=== PATIENT | male | born 1945 | race Caucasian/White ===

== ENCOUNTER → 2016-03-23 | Outpatient (CLI) | payer MEDICARE | LOC: RAD 15:06 | PROVIDERS: ATTEND Chiropractor | DX: M54.17 Radiculopathy, lumbosacral region (principal); M99.03 Segmental and somatic dysfunction of lumbar region | CPT/HCPCS: 72148 ==

== ENCOUNTER 2016-05-03 14:04 | Inpatient (IN) | payer MEDICARE ==
--- NOTE | 2016-05-03 14:32 | ER Document Report ---
ED Medical Screen (RME) - General Stated Complaint: RIGHT LEG PAIN, SWELLING Notes: dr rosen sent him over for DVT in right leg with concern for ?PE, patient has a h/o colon cancer but is in remission denies CP, SOB, difficulty breathing +h/o cancer, drove to [place] 2 weeks ago -recent surgery, tobacco use I have greeted and performed a rapid initial assessment of this patient. A comprehensive ED assessment and evaluation of the patient, analysis of test results and completion of the medical decision making process will be conducted by additional ED providers. TRAVEL OUTSIDE OF THE [place] IN LAST 30 DAYS: No - Related Data Allergies/Adverse Reactions: No Known Allergies Allergy (Verified 05/03/16 14:29) Past Medical History - Past Medical History Cardiac Medical History: Denies: Hx Coronary Artery Disease, Hx Heart Attack, Hx Hypertension Pulmonary Medical History: Reports: Hx Bronchitis - hx of, Hx COPD - inhalers Denies: Hx Asthma, Hx Pneumonia Neurological Medical History: Denies: Hx Cerebrovascular Accident, Hx Seizures Musculoskeltal Medical History: Denies Hx Arthritis - Immunizations Hx Diphtheria, Pertussis, Tetanus Vaccination: No
[2016-05-03 14:56] LABS: ABSOLUTE BASOPHILS # (AUTO) 0.1 10^3/uL (0.0-0.2); ABSOLUTE EOSINOPHILS # (AUTO) 0.4 10^3/uL (0.0-0.6); ABSOLUTE LYMPHOCYTES (AUTO) 1.2 10^3/uL (0.5-4.7); ABSOLUTE MONOCYTES (AUTO) 0.9 10^3/uL (0.1-1.4); ABSOLUTE NEUT (AUTO) 5.5 10^3/uL (1.7-8.2); BASOPHILS % (AUTO) 0.7 % (0-2); EOSINOPHILS % (AUTO) 4.8 % (0-6); HEMATOCRIT 41.5 % (37.9-51.0); HEMOGLOBIN 13.7 g/dL (13.5-17.0); HGB HCT DIFFERENCE -0.4; LYMPHOCYTES % (AUTO) 14.7 % (13-45); MEAN CORPUSCULAR HEMOGLOBIN 29.8 pg (27.0-33.4); MEAN CORPUSCULAR VOLUME 90 fl (80-97); MONOCYTES % (AUTO) 11.3 % (3-13); RED CELL DISTRIBUTION WIDTH 13.5 % (11.5-14.0); SEGMENTED NEUTROPHILS % (AUTO) 68.5 % (42-78); WHITE BLOOD COUNT 8.1 10^3/uL (4.0-10.5)
[2016-05-03 15:02] LABS: PROTHROMBIN TIME 13.3 SEC (11.4-15.4)
[2016-05-03 15:21] LABS: ALANINE AMINOTRANSFERASE 38 U/L (21-72); ALBUMIN 4.3 g/dL (3.5-5.0); ALKALINE PHOSPHATASE 71 U/L (38-126); ANION GAP 9 (5-19); ASPARTATE AMINO TRANSFERASE 20 U/L (17-59); BILIRUBIN,TOTAL 0.4 mg/dL (0.2-1.3); BLOOD UREA NITROGEN 18 mg/dL (7-20); CALCIUM 9.5 mg/dL (8.4-10.2); CARBON DIOXIDE 26 mmol/L (22-30); CHLORIDE 102 mmol/L (98-107); GLUCOSE 124 mg/dL (75-110); POTASSIUM 4.6 mmol/L (3.6-5.0); SODIUM 136.7 mmol/L (137-145); TOTAL PROTEIN 7.3 g/dL (6.3-8.2)
[2016-05-03] MEDS ORDERED: HEPARIN SOD (PORCINE) 1,000 UNIT/ML 10 ML VIAL IV ONE (17:58)
[2016-05-03] MEDS ORDERED: ENOXAPARIN SODIUM INJ 100 MG/1 ML DISP.SYRIN SUBCUT ONE (18:18)
--- NOTE | 2016-05-03 18:24 | ER Document Report ---
ED Respiratory Problem - General Chief Complaint: Swelling Stated Complaint: RIGHT LEG PAIN, SWELLING Notes: The patient is a 71-year-old male, past medical history colon cancer in the past , presents with right leg swelling and increased shortness of breath over the past few days. He saw his oncologist at [facility] earlier today, had a ultrasound of his right leg which showed large DVT and was sent to the emergency room for a CTA to assess for PE. He denies chest pain, nausea, vomiting, numbness, tingling, fevers, back pain or abdominal pain. TRAVEL OUTSIDE OF THE [place] IN LAST 30 DAYS: No - Related Data Allergies/Adverse Reactions: No Known Allergies Allergy (Verified 05/03/16 14:29) Past Medical History - General Information source: Patient - Social History Smoking Status: Never Smoker Chew tobacco use (# tins/day): No Frequency of alcohol use: None Drug Abuse: None Family History: Reviewed & Not Pertinent Patient has suicidal ideation: No Patient has homicidal ideation: No - Past Medical History Cardiac Medical History: Denies: Hx Coronary Artery Disease, Hx Heart Attack, Hx Hypertension Pulmonary Medical History: Reports: Hx Bronchitis - hx of, Hx COPD - inhalers Denies: Hx Asthma, Hx Pneumonia Neurological Medical History: Denies: Hx Cerebrovascular Accident, Hx Seizures Renal/ Medical History: Denies: Hx Peritoneal Dialysis Musculoskeltal Medical History: Denies Hx Arthritis Past Surgical History: Reports: Hx Abdominal Surgery - hernia repair, colon removed b/c CA, Hx Orthopedic Surgery - collar bone - Immunizations Hx Diphtheria, Pertussis, Tetanus Vaccination: No Hx Pneumococcal Vaccination: 12/25/12 Review of Systems - Review of Systems Notes: REVIEW OF SYSTEMS: CONSTITUTIONAL: -fevers, -chills EENT: -eye pain, -difficulty swallowing, -nasal congestion CARDIOVASCULAR: -chest pain, -syncope. RESPIRATORY: -cough, +SOB GASTROINTESTINAL: -abdominal pain, - nausea, -vomiting, -diarrhea GENITOURINARY: -dysuria, -hematuria MUSCULOSKELETAL: +right leg swelling and pain, -back pain, -neck pain SKIN: -rash or skin lesions. HEMATOLOGIC: -easy bruising or bleeding. LYMPHATIC: -swollen, enlarged glands. NEUROLOGICAL: -altered mental status or loss of consciousness, -headache, - neurologic symptoms PSYCHIATRIC: -anxiety, -depression. ALL OTHER SYSTEMS REVIEWED AND NEGATIVE. Physical Exam - Vital signs Vitals: Temp Pulse BP Pulse Ox 98.8 F 92 115/71 97 05/03/16 14:22 05/03/16 14:22 05/03/16 14:22 05/03/16 14:22 - Notes Notes: PHYSICAL EXAMINATION: GENERAL: Well-appearing, well-nourished and in no acute distress. HEAD: Atraumatic, normocephalic. EYES: Pupils equal round and reactive to light, extraocular movements intact, sclera anicteric, conjunctiva are normal. ENT: nares patent, oropharynx clear without exudates. Moist mucous membranes. NECK: Normal range of motion, supple without lymphadenopathy LUNGS: Breath sounds clear to auscultation bilaterally and equal. No wheezes rales or rhonchi. HEART: Regular rate and rhythm without murmurs ABDOMEN: Soft, nontender, normoactive bowel sounds. No guarding, no rebound. No masses appreciated. EXTREMITIES: Right leg with swelling and tenderness. Normal range of motion, no pitting or edema. No cyanosis. NEUROLOGICAL: Cranial nerves grossly intact. Normal speech, normal gait. Normal sensory, motor, and reflex exams. PSYCH: Normal mood, normal affect. SKIN: Warm, Dry, normal turgor, no rashes or lesions noted. Course - Re-evaluation Re-evalutation: 05/03/16 18:23 Patient has multiple small PE with large DVT on right lower extremity most likely from his history of colon cancer. Spoke to Dr. Acosta and he has accepted patient onto his service. He recommends Lovenox. Patient is hemodynamically stable at this time. - Vital Signs Vital signs: Temp Pulse Resp BP Pulse Ox 98.1 F 92 15 132/82 H 98 05/03/16 16:03 05/03/16 14:22 05/03/16 17:04 05/03/16 16:03 05/03/16 17:04 - Laboratory Result Diagrams: 05/03/16 14:35 05/03/16 14:35 Laboratory results interpreted by me: 05/03/16 14:35 Sodium 136.7 L Glucose 124 H - Diagnostic Test Radiology reviewed: Image reviewed, Reports reviewed Radiology results interpreted by me: CTA: Multiple small PEs Critical Care Note - Critical Care Note Total time excluding time spent on procedures (mins): 30 Discharge - Discharge Clinical Impression: DVT (deep venous thrombosis) Qualifiers: DVT location: lower extremity Affected thrombotic vein of extremity: unspecified vein of extremity Laterality: right Chronicity: unspecified Qualified Code(s): I82.401 - Acute embolism and thrombosis of unspecified deep veins of right lower extremity Pulmonary embolism Qualifiers: Pulmonary embolism type: other Chronicity: unspecified Acute cor pulmonale presence: without acute cor pulmonale Qualified Code(s): I26.99 - Other pulmonary embolism without acute cor pulmonale Condition: Stable Disposition: ADMITTED INPATIENT Admitting Provider: Hospitalist Unit Admitted: Medical Floor
[2016-05-03] MEDS ORDERED: ACETAMINOPHEN 325 MG TABLET PO PRN (18:48)
[2016-05-03] MEDS ORDERED: ONDANSETRON 4 MG TAB.RAPDIS PO PRN (18:48)
[2016-05-03] MEDS ORDERED: OXYCODONE HCL IR 5 MG TABLET PO PRN (18:54)
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
[2016-05-03] MEDS ORDERED: RIVAROXABAN 15 MG TABLET PO ONE (19:45)
[2016-05-04 05:00] LABS: HEMATOCRIT 39.2 % (37.9-51.0); HGB HCT DIFFERENCE -0.2; MEAN CORPUSCULAR HEMOGLOBIN 29.9 pg (27.0-33.4); MEAN CORPUSCULAR HGB CONC 33.1 g/dL (32.0-36.0); MEAN CORPUSCULAR VOLUME 90 fl (80-97); RED BLOOD COUNT 4.34 10^6/uL (4.35-5.55); RED CELL DISTRIBUTION WIDTH 13.7 % (11.5-14.0); WHITE BLOOD COUNT 7.3 10^3/uL (4.0-10.5)
[2016-05-04 05:14] LABS: ANION GAP 9 (5-19); BLOOD UREA NITROGEN 19 mg/dL (7-20); CARBON DIOXIDE 27 mmol/L (22-30); CHLORIDE 102 mmol/L (98-107); CREATININE RESULT 1.03 mg/dL (0.52-1.25); GLUCOSE 99 mg/dL (75-110); POTASSIUM 4.9 mmol/L (3.6-5.0); SODIUM 138.3 mmol/L (137-145)
[2016-05-04] MEDS ORDERED: RIVAROXABAN 15 MG TABLET PO SCH (08:00)
[2016-05-04 10:00] VITALS: BP 108/65
--- NOTE | 2016-05-04 10:00 | PDOC DISCHARGE SUMMARY ---
General - Admit/Disc Date/PCP Admission Date/Primary Care Provider: 05/03/16 18:48 Discharge Date: 05/04/16 - Discharge Diagnosis (1) Pulmonary embolism Is this a current diagnosis for this admission?: YesSummary: Treated with Xarelto (2) DVT (deep venous thrombosis) Is this a current diagnosis for this admission?: Yes (3) Gastroesophageal reflux disease Is this a current diagnosis for this admission?: Yes (4) Hypertension Is this a current diagnosis for this admission?: Yes (5) COPD (chronic obstructive pulmonary disease) Is this a current diagnosis for this admission?: Yes (6) Colon cancer Is this a current diagnosis for this admission?: Yes - Additional Information Resuscitation Status: Full Code Discharge Diet: Cardiac Discharge Activity: Activity As Tolerated, Keep Legs Elevated Home Medications: Bifidobacterium Infantis [Align 4 mg Capsule] 1 cap PO DAILY 11/23/13 Fexofenadine HCl [Tamika] 180 mg PO DAILY 11/23/13 Inhaler, Assist Devices [Aerochamber Mv] 1 each MC DAILY 11/23/13 Montelukast Sodium [Singulair 10 mg Tablet] 10 mg PO QHS 11/23/13 Omeprazole 20 mg PO DAILY 11/23/13 Oxycodone HCl/Acetaminophen [Percocet 10-325 mg Tablet] 1 each PO DAILY Pycnogn/Grpsdxt/Gkblfxt/Grtlfx [Herbal Antioxidant Formula Tab] 1 each PO DAILY 11/23/13 Tamsulosin HCl 0.4 mg PO DAILY 11/23/13 Rivaroxaban [Xarelto 15 mg Tablet] 15 mg PO BIDBS #42 tablet 05/04/16 History of Present Illness History of Present Illness: RUEL HILL is a 71 year old male who presents with a swollen right leg and is found have a pulmonary embolism. The patient reports that 3 weeks ago he began have back pain and was referred for an epidural injection for treatment of sciatica on the right. The patient had an epidural injection with improvement in his pain but continued to have pain in his right leg and also swelling. The patient went to his oncologist today and was sent for a Doppler was found to have a DVT. CT angiogram also showed him to have bilateral pulmonary emboli. Patient denies having significant shortness of breath and denies any chest pain. Denies any orthopnea or PND. He denies a cough or fevers or chills. Denies any change in his weight. He has a history of colon cancer in 2010 but has been cancer free since surgery and chemotherapy in 2010. Hospital Course Hospital Course: 71-year-old gentleman who has had problems with recent immobility developed DVT and pulmonary embolism. He was monitored overnight and started on Xarelto. He is not hypoxic and is able to ambulate without much discomfort or shortness of breath. Patient will go home with Xarelto 15 mg twice a day for 21 days and then 20 mg daily after that. Physical Exam Vital Signs: Temp Pulse Resp BP Pulse Ox 98.3 F 84 16 118/64 97 05/04/16 08:25 05/04/16 08:25 05/04/16 08:25 05/04/16 08:25 05/04/16 08:25 Intake & Output 05/03/16 05/04/16 05/05/16 06:59 06:59 06:59 Intake Total 600 Balance 600 Weight 82.5 kg General appearance: PRESENT: no acute distress Eye exam: PRESENT: conjunctiva pink. ABSENT: scleral icterus Mouth exam: PRESENT: moist, tongue midline Neck exam: ABSENT: carotid bruit, JVD, lymphadenopathy, thyromegaly Respiratory exam: PRESENT: clear to auscultation stephon. ABSENT: rales, rhonchi, wheezes Cardiovascular exam: PRESENT: RRR. ABSENT: diastolic murmur, rubs, systolic murmur GI/Abdominal exam: PRESENT: normal bowel sounds, soft. ABSENT: distended, guarding, mass, organolmegaly, rebound, tenderness Extremities exam: PRESENT: pedal edema - Right-sided leg edema.. ABSENT: calf tenderness, clubbing Neurological exam: PRESENT: alert, awake, oriented to person, oriented to place , oriented to time, oriented to situation Psychiatric exam: PRESENT: appropriate affect Skin exam: PRESENT: dry, intact, warm. ABSENT: cyanosis, rash Results Laboratory Results: 05/04/16 04:16 05/04/16 04:16 05/04/16 05/04/16 04:16 04:16 WBC 7.3 RBC 4.34 L Hgb 13.0 L Hct 39.2 MCV 90 MCH 29.9 MCHC 33.1 RDW 13.7 Plt Count 174 Sodium 138.3 Potassium 4.9 Chloride 102 Carbon Dioxide 27 Anion Gap 9 BUN 19 Creatinine 1.03 Est GFR ( Amer) > 60 Est GFR (Non-Af Amer) > 60 Glucose 99 Calcium 9.0 Impressions: Chest/Abdomen CTA 05/03/16 14:32 IMPRESSION: 1. Positive for mild pulmonary embolus as described. 2. Mild COPD. 3. Atherosclerosis. Qualifiers PATEINT BEING DISCHARGED WITH ANY OF THE FOLLOWING DIAGNOSIS?: No Plan Discharge Plan: Patient is discharged home in stable condition. Follow-up with primary care in 1 week. Time Spent: Less than 30 Minutes
== END 2016-05-04 10:20 | disposition home or self-care (01) | DRG 176 ==
LOC: ER 14:04 → EH 18:48 → 5 20:51
PROVIDERS: ADMIT Emergency Medicine; ATTEND Emergency Medicine
DX: I26.99 Other pulmonary embolism without acute cor pulmonale (principal); I82.401 Acute embolism and thrombosis of unspecified deep veins of right lower extremity; J44.9 Chronic obstructive pulmonary disease, unspecified; K21.9 Gastro-esophageal reflux disease without esophagitis; I10 Essential (primary) hypertension; Z85.038 Personal history of other malignant neoplasm of large intestine; Z92.21 Personal history of antineoplastic chemotherapy; M54.31 Sciatica, right side; Z79.02 Long term (current) use of antithrombotics/antiplatelets; Z90.49 Acquired absence of other specified parts of digestive tract
CPT/HCPCS: 36415; 71275; 80048; 80053; 85025; 85027; 85610; 93971; 99291; J1650

== ENCOUNTER → 2016-05-03 | Outpatient (CLI) | payer MEDICARE | LOC: SP 12:43 | PROVIDERS: ATTEND Internal Medicine Medical Oncology | DX: M79.661 Pain in right lower leg (principal) | CPT/HCPCS: 93971 ==

== ENCOUNTER → 2016-06-01 | Outpatient (CLI) | payer MEDICARE | LOC: RAD 05-20 17:41 | PROVIDERS: ATTEND Internal Medicine Medical Oncology | DX: C18.9 Malignant neoplasm of colon, unspecified (principal) | CPT/HCPCS: 78815; A9552 ==

== ENCOUNTER → 2016-06-21 | Outpatient (CLI) | payer MEDICARE | LOC: RAD 07:47 | PROVIDERS: ATTEND Internal Medicine Medical Oncology | DX: C20 Malignant neoplasm of rectum (principal); M48.56XA Collapsed vertebra, not elsewhere classified, lumbar region, initial encounter for fracture | CPT/HCPCS: 72158; A9577 ==

== ENCOUNTER 2016-07-17 10:54 | Day surgery (SDC) | payer MEDICARE ==
[2016-07-13 11:31] LABS: HEMATOCRIT 43.5 % (37.9-51.0); HEMOGLOBIN 14.6 g/dL (13.5-17.0); HGB HCT DIFFERENCE 0.3; MEAN CORPUSCULAR HEMOGLOBIN 30.1 pg (27.0-33.4); MEAN CORPUSCULAR HGB CONC 33.6 g/dL (32.0-36.0); MEAN CORPUSCULAR VOLUME 90 fl (80-97); RED BLOOD COUNT 4.85 10^6/uL (4.35-5.55); RED CELL DISTRIBUTION WIDTH 13.9 % (11.5-14.0); WHITE BLOOD COUNT 5.9 10^3/uL (4.0-10.5)
[2016-07-13 11:49] LABS: PARTIAL THROMBOPLASTIN TIME 34.7 SEC (23.5-35.8)
[2016-07-13 11:50] LABS: APPEARANCE,URINE CLEAR; BILIRUBIN,URINE NEGATIVE (NEGATIVE); GLUCOSE, URINE NEGATIVE (NEGATIVE); KETONES,URINE NEGATIVE (NEGATIVE); LEUKOCYTE ESTERASE,URINE NEGATIVE (NEGATIVE); NITRITE,URINE NEGATIVE (NEGATIVE); PROTEIN,URINE NEGATIVE (NEGATIVE); URINE SPECIFIC GRAVITY 1.003; UROBILINOGEN,URINE NEGATIVE mg/dL (<2.0)
--- NOTE | 2016-07-13 19:38 | EKG REPORT ---
SEVERITY:- ABNORMAL ECG - SINUS RHYTHM INFERIOR INFARCT, OLD : Confirmed by: Darrell Luis 13-Jul-2016 19:38:11
[~2016-07-17 10:54] MED LIST: CEFAZOLIN 1 GM/D5W RTU 1 GM/50 ML RTUPB IV PRN; LACTATED RINGERS 1000 ML IV PRN; LIDOCAINE 0.5% INJ-PF (5 MG/ML) 50 ML SDV SUBCUT PRN
[2016-07-17] MEDS ORDERED: LIDOCAINE 1% INJ-PF (10 MG/ML) 30 ML SDV ONE (11:17)
[2016-07-17 12:09] LABS: PROTHROMBIN TIME 12.7 SEC (11.4-15.4)
[2016-07-17 12:10] LABS: PARTIAL THROMBOPLASTIN TIME 30.9 SEC (23.5-35.8)
[2016-07-17] MEDS ORDERED: FENTANYL CITRATE INJ/PF 100 MCG/2 ML AMPUL ONE (13:21)
[2016-07-17] MEDS ORDERED: PROPOFOL INJ 200 MG/20 ML VIAL IV ONE (13:21)
[2016-07-17] MEDS ORDERED: MIDAZOLAM 2 MG/2 ML INJ ONE (13:21)
[2016-07-17] MEDS ORDERED: MORPHINE SULFATE 10 MG/ML INJ IV PRN (13:55)
[2016-07-17] MEDS ORDERED: MEPERIDINE HCL/PF INJ 25 MG/1 ML DISP.SYRIN IV PRN (13:55)
[2016-07-17] MEDS ORDERED: PROMETHAZINE HCL INJ 25 MG/1 ML VIAL IV PRN ×2 (13:55)
[2016-07-17] MEDS ORDERED: OXYCODONE-ACETAMINOPHEN 5-325 MG TABLET PO PRN ×3 (13:55→15:59)
[2016-07-17] MEDS ORDERED: FENTANYL CITRATE INJ/PF 100 MCG/2 ML AMPUL IV PRN ×3 (13:55)
[2016-07-17] MEDS ORDERED: DIPHENHYDRAMINE HCL 50 MG/ML VIAL IV PRN (13:55)
[2016-07-17] MEDS ORDERED: METHYLPREDNISOLONE ACETATE INJ 40 MG/1 ML ML ONE (14:03)
[2016-07-17] MEDS ORDERED: ONDANSETRON HCL INJ/PF 4 MG/2 ML SDV IV PRN (15:59)
[2016-07-17 17:09] VITALS: BP 101/61
--- NOTE | 2016-07-18 15:44 | OPERATIVE REPORT E ---
Operative Report NAME: RUEL HILL : 1945 AGE: 71Y DATE OF SURGERY: ROOM: PREOPERATIVE DIAGNOSIS: L5 compression fracture and lumbar radiculopathy. POSTOPERATIVE DIAGNOSIS: Lumbar radiculopathy and L5 compression fracture. OPERATION: Balloon kyphoplasty at L5 with biopsy, and L5-S1 lumbar epidural steroid injection translaminar. SURGEON: FLOR HERNANDEZ M.D. FLEXIBLE MACHINING SYSTEM MACHINIST: ABHISHEK ANDERSON M.D. ANESTHESIA: Monitored anesthesia care. COMPLICATIONS: None. PROCEDURE DETAIL: After obtaining informed consent, I advised the patient of the risks and benefits, including serious neurological injury, bleeding, infection, paralysis post-reaction, , and failure to adequately treat pain. He was taken to the operating suite. He was placed comfortably in the prone position and was turned by anesthesia. He was prepped and draped sterilely. A C-arm was brought in for monitoring and draped appropriately. Beginning at the L5 level using a right approach, a suitable skin entry site was identified and anesthetized with 1% lidocaine with bicarb. A small incision was made. A trocar was then advanced, and fluoroscopy was used in AP and lateral entry in the approach and utilizing intra into the vertebral body to position medial to medial wall. A drill was then placed and removed, following by the balloon. The procedure was then repeated using the left para approach at the same vertebral level. Using the right side, a core biopsy was obtained and sent for pathology. Once the balloon was adequately inflated, attention was addressed to the L5 fracture. C-arm was repositioned for , and getting at the L5 level filling was performed; 3 mL of placed on both sides for a total of 6 mL. After the filler trocars were all removed, were placed into the trocars. The cement was allowed to harden prior to removing the trocars. During the hardening process using a right paramedian approach, an L5-S1 translaminar lumbar epidural steroid injection, a 17-gauge Tuohy was advanced in AP and lateral view with [id number] to air and saline at 7.5. Appropriate epidurogram was obtained using 1 mL; 80 mg of Depo-Medrol was then injected epidurally. At this point, the needle was removed. The region was then cleaned, a sterile dressing placed. The patient was taken to postoperative care for monitoring. Patient will follow up tomorrow for wound check, and we will go from there. DICTATING PHYSICIAN: ABHISHEK ANDERSON M.D. [id number] PHY#: [id number] ID: [id number] JOB#: [id number] ACCT: [id number] cc:FLOR HERNANDEZ M.D., JOHN M.D. >
== END 2016-07-17 17:20 | disposition home or self-care (01) ==
LOC: OROUT 10:54
PROVIDERS: ATTEND Pain Medicine Interventional Pain Medicine
PROC: 0QU03JZ Supplement Lumbar Vertebra with Synthetic Substitute, Percutaneous Approach (ICD-10-PCS; 2016-07-17)
PROC: 0Q903ZX Drainage of Lumbar Vertebra, Percutaneous Approach, Diagnostic (ICD-10-PCS; 2016-07-17)
PROC: 3E0S33Z Introduction of Anti-inflammatory into Epidural Space, Percutaneous Approach (ICD-10-PCS; 2016-07-17)
PROC: 0QS03ZZ Reposition Lumbar Vertebra, Percutaneous Approach (ICD-10-PCS; principal; 2016-07-17 13:00)
DX: S32.058 Other fracture of fifth lumbar vertebra (principal); M54.5 Low back pain; M54.17 Radiculopathy, lumbosacral region; I10 Essential (primary) hypertension; F17.210 Nicotine dependence, cigarettes, uncomplicated; J43.9 Emphysema, unspecified; Z86.718 Personal history of other venous thrombosis and embolism; Z79.01 Long term (current) use of anticoagulants; Z79.899 Other long term (current) drug therapy; Z85.038 Personal history of other malignant neoplasm of large intestine
CPT/HCPCS: 93005; 36415 ×2; 85027; 85610 ×2; 85730 ×2; 81001; 88305 ×2; 72100; 93010; 22514; 62322; Q9966; J2250; J0690; J3010; J3490; J1020; J2704; 1936

== ENCOUNTER → 2017-05-30 | Outpatient (CLI) | payer MEDICARE ==
[~2017-05-30] MED LIST changes: +AMINOPHYLLINE INJ/PF 250 MG/10 ML SDV IV ONE; -CEFAZOLIN 1 GM/D5W RTU 1 GM/50 ML RTUPB IV PRN; -LACTATED RINGERS 1000 ML IV PRN; -LIDOCAINE 0.5% INJ-PF (5 MG/ML) 50 ML SDV SUBCUT PRN; +REGADENOSON INJ 0.4 MG/5 ML DISP.SYRIN IV ONE
--- NOTE | 2017-05-30 13:48 | DRAGON STRESS TEST REPORT ---
INTRAVENOUS LEXISCAN CARDIOLITE STRESS TEST USING SINGLE PHOTON EMMISION COMPUTERIZED TOMOGRAPHIC. DATE OF PROCEDURE: May 30, 2017, INDICATION : Chest pain CARDIAC RISK FACTORS: Hypertension, dyslipidemia RESTING EKG: Sinus rhythm, borderline Q waves inferiorly. STRESS EKG: No significant changes noted with LexiScan bolus REASON FOR TERMINATION: Protocol. PROCEDURE REPORT: Baseline heart rate 82 beats per minute with blood pressure of 129/63. Patient had no significant complaints. Heart rate at 2 minutes post bolus 100 with a blood pressure of 123/49. 3 minutes post bolus heart rate 96 with blood pressure of 112/49. No significant EKG changes were noted. Patient had no significant complaints during the procedure or postprocedure. Patient injected with Aminophyllin 75 mg at 3 minutes or later after Lexiscan bolus. CONCLUSIONS: Normal EKG and hemodynamic response to IV LexiScan. NUCLEAR DATA: At rest the patient was given 13.84 millicuries of technetium 99 sestamibi injected intravenously. As per protocol rest gated SPECT images were obtained. On day of stress test, the patient was given intravenous LexiScan at a dose of 0.4 mg in 5 mL intravenously, followed by flush with normal saline. Subsequently the stress dose of 41.1 millicuries of technetium 99 sestamibi was injected intravenously. As per protocol stress gated images were obtained. NUCLEAR INTERPRETATION: Both raw and processed data were used for interpretation. Visual, qualitative, computer-generated quantitative data was used. There was good myocardial uptake of technetium compound. Motion artifact and soft tissue attenuations were noted. Increased visceral uptake was noted. Decreased uptake noted in the inferoapical, mid and distal inferior wall in the stress imaging with a smaller fixed defect being noted on rest imaging. This is indicative of ischemia with underlying scar involving the inferoapex, distal and mid inferior wall, RCA territory. EKG gated imaging showed LV EF at 63 %, rest and stress gated EF similar visually with mild mid inferior wall hypokinesia noted. T. I D. ratio was 1.21. Lung heart ratio noted to be within normal limits 0.36. No significant extracardiac and abnormal radiotracer activities were noted. RV free wall uptake was noted to be WNL. IMPRESSION: Also refer to comments under nuclear interpretation. Also test results needs to be interpreted in the context of pretest probability. 1. Inferoapical, mid and distal inferior wall transient perfusion defect noted indicative of ischemia. 2. Smaller underlying fixed defect noted indicative of underlying myocardial infarction with surrounding ischemia. 3. EKG gated imaging shows left ventricular ejection fraction of approx. 63 % with mild mid inferior wall hypokinesia. 4. Clinical correlation requested as occasionally single vessel disease or balanced ischemia could be missed. In approximately 10% of the cases Lexiscan may not cause adequate vasodilatory stress. RECOMMENDATIONS: Aggressive risk factor modification and medical management. Further evaluation may be needed if continued symptoms or other high risk indicators are noted on clinical evaluation. Close cardiology follow-up is also recommended. Clinical correlation with echocardiogram derived ejection fraction. Inability to exercise by itself can lead to increased cardiovascular event risks. Consider cardiology consultation and or follow-up if clinically indicated. 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 LEIDY
== END ==
LOC: RAD 08:09
PROVIDERS: ATTEND Family Medicine
DX: R07.9 Chest pain, unspecified (principal)
CPT/HCPCS: 93017; 78452; A9500; J2785; J0280; Q9969

== ENCOUNTER 2018-11-21 10:53 | Emergency (ER) | payer MEDICARE ==
--- NOTE | 2018-11-21 11:02 | ER Document Report ---
ED Medical Screen (RME) - General Chief Complaint: Skin Sore(s) Stated Complaint: SKIN SORE/LEFT COLLARBONE Time Seen by Provider: 11/21/18 10:59 Primary Care Provider: JESSI SAM MD [Primary Care Provider] - Follow up as needed Mode of Arrival: Ambulatory Information source: Patient Notes: 73-year-old male presented to ED for an open area above a previous fracture repair. He states that he had a fractured clavicle 9 years ago and had a surgery to repair it last night when he rolled over the area opened and you can see metal in the opening. There is no bleeding. Patient is on Xarelto. He states he is concerned that it would get infected and it has been infected once in the past and he does not want to get infected again. He is alert oriented respirations regular and unlabored speaking in full sentences. There is no signs or symptoms of infection no redness no drainage the area is open you can see metal there is no bleeding. I have greeted and performed a rapid initial assessment of this patient. A comprehensive ED assessment and evaluation of the patient, analysis of test results and completion of medical decision making process will be conducted by an additional ED providers. TRAVEL OUTSIDE OF THE [place] IN LAST 30 DAYS: No - Related Data Allergies/Adverse Reactions: No Known Allergies Allergy (Verified 11/21/18 10:55) Past Medical History - Past Medical History Cardiac Medical History: Denies: Hx Coronary Artery Disease, Hx Heart Attack, Hx Hypertension Pulmonary Medical History: Reports: Hx Bronchitis, Hx COPD - inhalers, Hx Pneumonia - 2016 Denies: Hx Asthma Neurological Medical History: Denies: Hx Cerebrovascular Accident, Hx Seizures Renal/ Medical History: Denies: Hx Peritoneal Dialysis GI Medical History: Reports: Hx Gastroesophageal Reflux Disease Musculoskeltal Medical History: Reports Hx Arthritis Past Surgical History: Reports: Hx Abdominal Surgery - hernia repair, colon removed b/c CA, Hx Orthopedic Surgery - collar bone, Other - Partial colectomy for his colon cancer. - Immunizations Hx Diphtheria, Pertussis, Tetanus Vaccination: No Doctor's Discharge - Discharge Referrals: JESSI SAM MD [Primary Care Provider] - Follow up as needed
--- NOTE | 2018-11-21 12:21 | RADIOLOGY REPORT (SQ) ---
EXAM DESCRIPTION: CLAVICLE LEFT COMPLETED DATE/TIME: 11/21/2018 12:07 pm REASON FOR STUDY: open wound over hardware COMPARISON: None. NUMBER OF VIEWS: Two views. TECHNIQUE: Frontal and angled images were acquired of the left clavicle. LIMITATIONS: None. FINDINGS: MINERALIZATION: Normal. BONES: No acute fracture dislocation. There is compression plate on the clavicle. SOFT TISSUES: No obvious swelling or foreign body. OTHER: No other significant finding. IMPRESSION: Compression plate. No acute osseous finding. TECHNICAL DOCUMENTATION: JOB ID: [id number] [employer]- All Rights Reserved Reading location - IP/workstation name: [email or web address]
--- NOTE | 2018-11-21 12:59 | ER Document Report ---
ED General - General Chief Complaint: Skin Sore(s) Stated Complaint: SKIN SORE/LEFT COLLARBONE Time Seen by Provider: 11/21/18 10:59 Primary Care Provider: FREEMAN HILL JR, DO [ACTIVE PROVISIONAL STAFF] - 11/24/18 Mode of Arrival: Ambulatory Information source: Patient Notes: Patient presents with open wound over previously repaired fractured clavicle. Patient states he had surgery to repair his fractured clavicle 9 years ago. Patient denies any recent trauma to the area. Patient states that he woke up and noticed moisture to his neck. Patient states that when he was cleansing the area he noticed an opening over his previous surgical site and was able to see his hardware in the opening of the wound. Patient denies any fever or purulent drainage. TRAVEL OUTSIDE OF THE [place] IN LAST 30 DAYS: No - HPI Onset: This morning Onset/Duration: Gradual Quality of pain: No pain Pain Level: Denies Associated symptoms: denies: Fever Exacerbated by: Denies Relieved by: Denies Similar symptoms previously: No Recently seen / treated by doctor: No - Related Data Allergies/Adverse Reactions: No Known Allergies Allergy (Verified 11/21/18 10:55) Past Medical History - General Information source: Patient - Social History Smoking Status: Former Smoker Frequency of alcohol use: Rare Drug Abuse: None Lives with: Spouse/Significant other Family History: Reviewed & Not Pertinent Patient has suicidal ideation: No Patient has homicidal ideation: No - Past Medical History Cardiac Medical History: Reports: Hx Hypertension Pulmonary Medical History: Reports: Hx Bronchitis, Hx COPD - inhalers, Hx Pneumonia - 2017 Denies: Hx Asthma Renal/ Medical History: Denies: Hx Peritoneal Dialysis Malignancy Medical History: Reports Hx Colorectal Cancer GI Medical History: Reports: Hx Gastroesophageal Reflux Disease Musculoskeletal Medical History: Reports Hx Arthritis Past Surgical History: Reports: Hx Abdominal Surgery - hernia repair, colon removed b/c CA, Hx Herniorrhaphy, Hx Orthopedic Surgery - Left collar bone, Back, Other - Partial colectomy for his colon cancer. - Immunizations Hx Diphtheria, Pertussis, Tetanus Vaccination: No Hx Pneumococcal Vaccination: 12/25/12 Review of Systems - Review of Systems Constitutional: No symptoms reported. denies: Fever EENT: No symptoms reported Cardiovascular: No symptoms reported Respiratory: No symptoms reported Gastrointestinal: No symptoms reported Genitourinary: No symptoms reported Male Genitourinary: No symptoms reported Musculoskeletal: No symptoms reported Skin: Other - Open wound over left clavicle with visible hardware Hematologic/Lymphatic: No symptoms reported Neurological/Psychological: No symptoms reported Physical Exam - Vital signs Vitals: Temp Pulse Resp BP Pulse Ox 98.6 F 71 16 131/67 H 95 11/21/18 11:05 11/21/18 11:05 11/21/18 11:05 11/21/18 11:05 11/21/18 11:05 - General General appearance: Appears well, Alert In distress: None - HEENT Head: Normocephalic, Atraumatic Eyes: Normal Conjunctiva: Normal Nasal: Normal Mouth/Lips: Normal Mucous membranes: Normal - Respiratory Respiratory status: No respiratory distress Chest status: Nontender Breath sounds: Normal Chest palpation: Normal - Cardiovascular Rhythm: Regular Heart sounds: S1 appreciated, S2 appreciated Pulses: Normal: Radial - Extremities General upper extremity: Nontender, Normal ROM, Other - Patient with 4 mm opening over the left clavicular area, visible hardware noted from patient's previous clavicular fracture repair, no surrounding erythema, no purulent drainage General lower extremity: Normal inspection, Normal ROM - Neurological Neuro grossly intact: Yes Cognition: Normal Carlos Coma Scale Eye Opening: Spontaneous Carlos Coma Scale Verbal: Oriented Carlos Coma Scale Motor: Obeys Commands Carlos Coma Scale Total: 15 - Psychological Associated symptoms: Normal affect, Normal mood - Skin Skin Temperature: Warm Skin Moisture: Dry Skin Color: Normal Skin irregularity: other - 4 mm open area over left clavicular area, visible hardware underneath seen Course - Re-evaluation Re-evalutation: 11/21/18 12:[address] Murrell recommends consultation with orthopedics. Spoke with Dr. Hill who is on-call for orthopedics who states that he will be in to see patient in about [address] Hill states that frequently these will require removal of the hardware with replacement and multistage closure. 11/21/18 13:57 Dr. Hill to bedside to examine patient. 11/21/18 14:12 Dr. Hill discussed with patient options of staying here and having surgery today or having outpatient surgery. Patient prefers outpatient follow-up at this time. Dr. Hill does not recommend any antibiotics at this time. - Vital Signs Vital signs: Temp Pulse Resp BP Pulse Ox 98.6 F 73 17 123/67 95 11/21/18 14:18 11/21/18 14:18 11/21/18 14:18 11/21/18 14:18 11/21/18 14:18 - Diagnostic Test Radiology reviewed: Image reviewed, Reports reviewed Discharge - Discharge Clinical Impression: open wound over clavicle hardware Condition: Stable Disposition: HOME, SELF-CARE Additional Instructions: Return immediately for any new or worsening symptoms Followup with Dr. Hill in his office on Saturday. He will likely schedule you for surgery on Saturday Referrals: FREEMAN HILL JR, [ACTIVE PROVISIONAL STAFF] - 11/24/18
[2018-11-21 14:19] VITALS: BP 123/67
--- NOTE | 2018-11-21 14:46 | PDOC CONSULTATION ---
Consultation Consult Date: 11/21/18 Provider Consulted: FREEMAN HILL JR History of Present Illness Admission Date/PCP: SHIV CARNEY MD History of Present Illness: RUEL HILL is a 73 year old male presents with left clavicle hardware exposure. He explains that he had a ORIF of his left clavicle about 9 years ago. At that time it became infected wiring revision surgery. Since that time it has been nonpainful without any changes however he recently noticed some clear drainage this morning, and presented to the ED. Upon inspection a screw head is visible. He denies current pain, denies fevers chills nausea vomiting night sweats. There is no erythema, patient denies other symptoms. Prior to today he had no issues. Past Medical History Cardiac Medical History: Reports: Hypertension Denies: Coronary Artery Disease, Myocardial Infarction Pulmonary Medical History: Reports: Bronchitis, Chronic Obstructive Pulmonary Disease (COPD) - inhalers, Pneumonia - 2017 Denies: Asthma Neurological Medical History: Denies: Seizures GI Medical History: Reports: Gastroesophageal Reflux Disease Musculoskeltal Medical History: Reports: Arthritis Hematology: Denies: Anemia Past Surgical History Past Surgical History: Reports: Orthopedic Surgery - Left collar bone, Back, Other - Partial colectomy for his colon cancer. Social History Smoking Status: Former Smoker Frequency of Alcohol Use: None Hx Recreational Drug Use: No Drugs: None Family History Family History: Reviewed & Not Pertinent Parental Family History Reviewed: No Children Family History Reviewed: No Sibling(s) Family History Reviewed.: No Medication/Allergy Home Medications: Inhaler, Assist Devices [Aerochamber Mv] 1 each MC DAILY 11/23/13 Pycnogn/Grpsdxt/Gkblfxt/Grtlfx [Herbal Antioxidant Formula Tab] 1 each PO DAILY 11/23/13 Enoxaparin Sodium [Lovenox Inj 40 Mg/0.4 Ml Disp.Syrin] 40 mg SUBCUT DAILY 07/13/16 Tamsulosin HCl [Flomax] 0.4 mg PO DAILY 07/13/16 Tiotropium [place] [Spiriva Handihaler 18 mcg/dose (30 Dose)] 1 cap IH DAILY 07/13/16 Lisinopril 20 mg PO DAILY 07/17/16 Oxycodone HCl 5 - 10 mg PO QID PRN 07/17/16 Allergies/Adverse Reactions: No Known Allergies Allergy (Verified 11/21/18 10:55) Review of Systems Review of Systems: Constitutional: ABSENT: anorexia, chills, night sweats Cardiovascular: ABSENT: chest pain Respiratory: ABSENT: dyspnea Gastrointestinal: ABSENT: vomiting Genitourinary: ABSENT: dysuria Integumentary: ABSENT: rash Neurological: ABSENT: confusion, memory loss, numbness Psychiatric: ABSENT: hallucinations Hematologic/Lymphatic: ABSENT: easy bleeding All negative as above aside from that reported in the HPI and the above Physical Exam Vital Signs: Temp Pulse Resp BP Pulse Ox 98.6 F 73 17 123/67 95 11/21/18 14:18 11/21/18 14:18 11/21/18 14:18 11/21/18 14:18 11/21/18 14:18 Intake & Output 11/20/18 11/21/18 11/22/18 06:59 06:59 06:59 Weight 87.7 kg Physical Exam: General appearance: PRESENT: no acute distress, cooperative, well-nourished Head exam: PRESENT: atraumatic, normocephalic Eye exam: PRESENT: EOMI Ear exam: PRESENT: normal external ear exam Mouth exam: PRESENT: neck supple Neck exam: ABSENT: tracheal deviation Respiratory exam: PRESENT: symmetrical, unlabored. ABSENT: accessory muscle use, wheezes Pulses: PRESENT: normal radial pulses, normal dorsalis pedis pul Vascular exam: PRESENT: normal capillary refill GI/Abdominal exam: ABSENT: distended, firm Extremities exam: PRESENT: full ROM Musculoskeletal exam: PRESENT: full ROM, normal inspection Neurological exam: PRESENT: alert, awake, oriented to person, oriented to place, oriented to time Psychiatric exam: PRESENT: appropriate affect. ABSENT: agitated Focused psych exam: ABSENT: catatonic Skin exam: PRESENT: intact. ABSENT: dry All as above aside from that noted in the HPI and the following: Focused exam of the left upper extremity reveals a well-healed incision over his clavicle with a single small area that allows for visualization of the screw head. There is no current drainage, there is scant drainage in his bandage. There is no erythema surrounding the exposed hardware. There are no gross signs of infection or chronic irritation. Palpation of the clavicle reveals no drainable abscess or other indication of occult infection. Otherwise the left upper extremity is sensorimotor intact and pulses are 2+. Results Impressions: Clavicle X-Ray 11/21/18 11:37 IMPRESSION: Compression plate. No acute osseous finding. AP and oblique of the left clavicle demonstrates a healed clavicle with an anterior plate and no signs of loosening. Assessment & Plan - Diagnosis (1) Exposed orthopaedic hardware Plan: I had a long conversation with the patient regarding treatment of his exposed clavicle hardware. At this time the clavicle is well-healed and the plate is no longer serving stabilizing purpose. I suggested removal and encouraged him to have it removed today for urgent surgery. I explained that prolonged exposure will inevitably lead to infection and further issues including potential osteomyelitis and sepsis. He demonstrated understanding however wants to "think and pray about it ". I encouraged him to see me in the office on Saturday and we can schedule him as an outpatient on Saturday. I also encouraged that if any symptoms develop in the next few days to return to the ER and we could manage his condition acutely. At this time I do not want him on any antibiotics because I would like to get viable cultures in the operating room for appropriate antibiotic treatment. I also discussed this case with Dr. Frank Smith, infectious disease, who is willing to see the patient in the office for definitive antibiotic management. -The patient refused acute treatment at this time, he is to see me in the office on Saturday, my information was provided to him. -Plan will be to schedule removal, and depending on findings potential discharge home with following cultures for long-term antibiotic plans -I urged him to have this managed sooner than later, and if he prefers to go to another facility that is okay but I explained it is very important that he has some continued care within the next few days. He and his who are both in the room at the time expressed understanding, she assured me that she would hold him accountable to continued care.
== END 2018-11-21 14:22 | disposition home or self-care (01) ==
LOC: ER 10:53
DX: Z47.89 Encounter for other orthopedic aftercare (principal); I10 Essential (primary) hypertension
CPT/HCPCS: 99283

== ENCOUNTER 2018-11-25 13:30 | Day surgery (SDC) | payer MEDICARE ==
--- NOTE | 2018-11-24 13:05 | RADIOLOGY REPORT (SQ) ---
EXAM DESCRIPTION: CHEST PA/LATERAL COMPLETED DATE/TIME: 11/24/2018 12:54 pm REASON FOR STUDY: PRE-OP COMPARISON: 07/21/2010 EXAM PARAMETERS: NUMBER OF VIEWS: two views TECHNIQUE: Digital Frontal and Lateral radiographic views of the chest acquired. RADIATION DOSE: NA LIMITATIONS: none FINDINGS: LUNGS AND PLEURA: No opacities, masses or pneumothorax. No pleural effusion. MEDIASTINUM AND HILAR STRUCTURES: No masses or contour abnormalities. HEART AND VASCULAR STRUCTURES: Heart normal size. No evidence for failure. BONES: No acute findings. HARDWARE: None in the chest. OTHER: No other significant finding. IMPRESSION: NO SIGNIFICANT RADIOGRAPHIC FINDING IN THE CHEST. TECHNICAL DOCUMENTATION: JOB ID: [id number] [employer]- All Rights Reserved Reading location - IP/workstation name: [email or web address]
[2018-11-24 13:21] LABS: ABSOLUTE EOSINOPHILS # (AUTO) 0.2 10^3/uL (0.0-0.6); ABSOLUTE LYMPHOCYTES (AUTO) 1.3 10^3/uL (0.5-4.7); ABSOLUTE MONOCYTES (AUTO) 0.7 10^3/uL (0.1-1.4); ABSOLUTE NEUT (AUTO) 5.3 10^3/uL (1.7-8.2); BASOPHILS % (AUTO) 0.5 % (0-2); HEMATOCRIT 41.5 % (37.9-51.0); HEMOGLOBIN 13.9 g/dL (13.5-17.0); LYMPHOCYTES % (AUTO) 17.3 % (13-45); MEAN CORPUSCULAR HEMOGLOBIN 30.1 pg (27.0-33.4); MEAN CORPUSCULAR HGB CONC 33.5 g/dL (32.0-36.0); MEAN CORPUSCULAR VOLUME 90 fl (80-97); MONOCYTES % (AUTO) 8.9 % (3-13); PLATELET COUNT 178 10^3/uL (150-450); RED BLOOD COUNT 4.62 10^6/uL (4.35-5.55); RED CELL DISTRIBUTION WIDTH 13.9 % (11.5-14.0); SEGMENTED NEUTROPHILS % (AUTO) 70.3 % (42-78); TOTAL CELLS COUNTED % (AUTO) 100 %; WHITE BLOOD COUNT 7.6 10^3/uL (4.0-10.5)
[2018-11-24 13:39] LABS: ANION GAP 11 (5-19); BLOOD UREA NITROGEN 17 mg/dL (7-20); CALCIUM 9.4 mg/dL (8.4-10.2); CARBON DIOXIDE 27 mmol/L (22-30); CHLORIDE 101 mmol/L (98-107); GLUCOSE 94 mg/dL (75-110); POTASSIUM 4.7 mmol/L (3.6-5.0)
--- NOTE | 2018-11-24 14:46 | EKG REPORT ---
SEVERITY:- ABNORMAL ECG - SINUS RHYTHM INFERIOR INFARCT, OLD : Confirmed by: Zahira Corey MD 24-Nov-2018 14:45:53
[~2018-11-25 13:30] MED LIST changes: -AMINOPHYLLINE INJ/PF 250 MG/10 ML SDV IV ONE; +CEFAZOLIN SODIUM 2 GM in DEXTROSE 5%-WATER 100 ML IV PRN; -REGADENOSON INJ 0.4 MG/5 ML DISP.SYRIN IV ONE
[2018-11-25 15:20] LABS: INTERNATIONAL RATION (INR) 1.05; PROTHROMBIN TIME 13.7 SEC (11.4-15.4)
[2018-11-25] MEDS ORDERED: ALBUTEROL SULFATE 0.083% NEB 2.5 MG/3 ML AMPUL NEB ONE (16:40)
[2018-11-25] MEDS ORDERED: MIDAZOLAM 2 MG/2 ML INJ ONE ×2 (16:46→17:59)
[2018-11-25] MEDS ORDERED: MIDAZOLAM 2 MG/2 ML INJ IV ONE (16:53)
[2018-11-25] MEDS ORDERED: PROPOFOL INJ 200 MG/20 ML VIAL IV ONE (17:59)
[2018-11-25] MEDS ORDERED: ONDANSETRON HCL INJ/PF 4 MG/2 ML SDV ONE (17:59)
[2018-11-25] MEDS ORDERED: FENTANYL CITRATE INJ/PF 100 MCG/2 ML AMPUL ONE (17:59)
[2018-11-25] MEDS ORDERED: VANCOMYCIN HCL INJ 1000 MG VIAL ONE (18:40)
[2018-11-25] MEDS ORDERED: MEPERIDINE HCL/PF INJ 25 MG/1 ML DISP.SYRIN IV PRN (19:03)
[2018-11-25] MEDS ORDERED: FENTANYL CITRATE INJ/PF 100 MCG/2 ML AMPUL IV PRN ×3 (19:03)
[2018-11-25] MEDS ORDERED: PROMETHAZINE HCL INJ 25 MG/1 ML VIAL IV PRN (19:03)
[2018-11-25] MEDS ORDERED: DIPHENHYDRAMINE HCL 50 MG/ML VIAL IV PRN (19:03)
[2018-11-25] MEDS ORDERED: LIDOCAINE 1% INJ-PF (10 MG/ML) 30 ML SDV ONE (19:12)
[2018-11-25] MEDS ORDERED: BUPIVACAINE HCL 0.5 % INJ/PF 30 ML SDV ONE (19:12)
[2018-11-25] MEDS ORDERED: LIDOCAINE 1% INJ (10 MG/ML) 10 ML MDV INJ ONE (19:13)
[2018-11-25] MEDS ORDERED: BUPIVACAINE HCL 0.5 % INJ/PF 30 ML SDV INJ ONE (19:13)
[2018-11-25] MEDS ORDERED: IPRATROPIUM/ALBUTEROL 0.5-2.5 MG/3 ML AMPUL NEB ONE (20:00)
[2018-11-25] MEDS ORDERED: KETOROLAC TROMETHAMINE 60 MG/2 ML SDV IM PRN (20:07)
[2018-11-25] MEDS ORDERED: OXYCODONE HCL IR 5 MG TABLET PO PRN (20:09)
--- NOTE | 2018-11-25 20:28 | Operative Report ---
Operative Report DATE OF SURGERY: 11/25/18 PREOPERATIVE DIAGNOSIS: Left clavicle exposed hardware. POSTOPERATIVE DIAGNOSIS: Same OPERATION: Left clavicle hardware removal, with irrigation and debridement SURGEON: FREEMAN HILL JR ANESTHESIA: GA TISSUE REMOVED OR ALTERED: Left clavicle plate swabbed and periosteal tissue culture for permanent. COMPLICATIONS: none ESTIMATED BLOOD LOSS: 25 INTRAOPERATIVE FINDINGS: Skin and underlying tissue appeared all healthy. No signs of infection. Bone was well-healed PROCEDURE: Patient is a 73-year-old male who presented to my office on Saturday of this week after having been seen in the ER this past weekend. He presented with exposure of his left clavicle hardware. Patient had a left clavicle open reduction internal fixation about 7 years ago. He does not recall who the surgeon was. At that time he did sustain a surgical site infection that resolved without plate removal. Initially he explains that he woke up at night with it draining however upon recollection he did note that he might have scraped it against something when he was climbing out from under a sink this past week. 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 I expanded the risks and benefits of nonoperative versus operative management and that failing to proceed with operative management would likely lead to infection of this exposed hardware. After thorough discussion and answer all his questions he provided written consent. Patient was brought into the operative suite and placed supine on the operating table. He was provided with general anesthesia through an LMA. He was given 2 g of Ancef preoperatively. After adequate anesthesia the site was prepped and draped in standard sterile fashion. The hardware was visible with the naked eye without any manipulation of the tissue. The opening was approximately 5 x 5 mm. After an appropriate timeout an incision was made over the prior incision and with the use of cautery and periosteal elevators the hardware was exposed. The screws were removed as well as the plate. The back of the plate was then swabbed with culture swabs and sent for culture. Further cultures were taken with a rondure over the existing bone. All of the tissue appeared healthy without signs of infection. Still with the history of prior infection we took the precaution of thorough debridement and subsequent irrigation with Aricept. This was then again rinsed with copious amounts of sterile saline. Finally about half a gram of vancomycin powder was applied to the wound. The wound was then sewn shut with subcuticular 3-0 Monocryl's in an interrupted fashion followed by a running 3-0 nylon suture on the skin. The wound was then injected with half half percent Marcaine and one half 1% lidocaine for a total of approximately 15 mL. A sterile dressing was applied the patient was transferred to the hospital bed in stable condition. Of note he did have a difficult awakening with considerable coughing. We did continue to monitor him in the PACU until we were comfortable with his potential to go home. I discussed this thoroughly with Dr. Hendrix, anesthesia, and my desire to keep him overnight if there is any concern. However after a brief stay in the PACU the patient improved rapidly and was deemed stable for discharge home.
--- NOTE | 2018-11-25 21:03 | RADIOLOGY REPORT (SQ) ---
EXAM DESCRIPTION: XR CLAVICLE COMPLETED DATE/TME: 11/25/2018 00:00 CLINICAL HISTORY: 73 years, Male, post op COMPARISON: None. NUMBER OF VIEWS: Two TECHNIQUE: Two frontal views of the left clavicle were obtained. LIMITATIONS: None. FINDINGS: Pre-existing compression plate with associated screws about the clavicle has been removed in the interim. Underlying chronic fracture deformity involving the left clavicular mid shaft appears unchanged in alignment from the previous exams. There is mild AC joint arthrosis as well as irregularity and sclerosis about the greater tuberosity of the humerus, a finding which can be associated with chronic rotator cuff tendinopathy. Visualized lung apices are clear. Calcifications are noted about the carotid vasculature bilaterally. IMPRESSION: Interval removal of pre-existing hardware about the left clavicular mid shaft, which was previously transfixing a fracture involving the left clavicular midshaft. copyright 2010 [employer]- All Rights Reserved
[2018-11-25 21:35] VITALS: BP 134/74
[2018-11-25] MEDS ORDERED: CEPHALEXIN 500 MG CAPSULE PO SCH (22:00)
--- NOTE | 2018-11-26 08:23 | RADIOLOGY REPORT (SQ) ---
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 FLUOROSCOPY TIME: 0.0 minutes. 1 images saved to PACS. TECHNIQUE: Intra-operative images acquired during surgical procedure to evaluate progress. NUMBER OF IMAGES: 1 LIMITATIONS: None. FINDINGS: Single image of the clavicle, presumably the left but not labeled. Hardware has been vidal swapnil. No fracture. Correlate with operative note. IMPRESSION: IMAGE(S) OBTAINED DURING PROCEDURE. COMMENT: Quality ID 145: Final reports for procedures using fluoroscopy that document radiation exp osure indices, or exposure time and number of fluorographic images (if radiation exposure indices are not available) Please consult full operative report of the attending physician for description of the procedure. TECHNICAL DOCUMENTATION: JOB ID: [id number] [employer]- All Rights Reserved Reading location - IP/workstation name: [email or web address]
--- NOTE | 2018-11-26 08:23 | RADIOLOGY REPORT (SQ) ---
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 FLUOROSCOPY TIME: 0.0 minutes. 1 images saved to PACS. TECHNIQUE: Intra-operative images acquired during surgical procedure to evaluate progress. NUMBER OF IMAGES: 1 LIMITATIONS: None. FINDINGS: Single image of the clavicle, presumably the left but not labeled. Hardware has been vidal swapnil. No fracture. Correlate with operative note. IMPRESSION: IMAGE(S) OBTAINED DURING PROCEDURE. COMMENT: Quality ID 145: Final reports for procedures using fluoroscopy that document radiation exp osure indices, or exposure time and number of fluorographic images (if radiation exposure indices are not available) Please consult full operative report of the attending physician for description of the procedure. TECHNICAL DOCUMENTATION: JOB ID: [id number] [employer]- All Rights Reserved Reading location - IP/workstation name: [email or web address]
== END 2018-11-25 21:06 | disposition home or self-care (01) ==
LOC: OROUT 13:30
PROVIDERS: ATTEND Orthopaedic Surgery
DX: T84.89XA Other specified complication of internal orthopedic prosthetic devices, implants and grafts, initial encounter (principal); Y83.8 Other surgical procedures as the cause of abnormal reaction of the patient, or of later complication, without mention of misadventure at the time of the procedure; J44.9 Chronic obstructive pulmonary disease, unspecified; F17.210 Nicotine dependence, cigarettes, uncomplicated; R06.02 Shortness of breath; Z79.899 Other long term (current) drug therapy; Z79.01 Long term (current) use of anticoagulants; Z85.038 Personal history of other malignant neoplasm of large intestine; Z86.718 Personal history of other venous thrombosis and embolism
CPT/HCPCS: 93005; 36415 ×2; 87070; 87205; 85025; 85610; 85730; 87075; 80048; 71046; 73000; 93010; 20680; 11044; J2250; J3490; J0690; J3010; J2405; J7060; J2704; J3370; A9270 ×2; J7620

== ENCOUNTER → 2019-01-27 | Outpatient (CLI) | payer MEDICARE ==
--- NOTE | 2019-01-27 10:02 | RADIOLOGY REPORT (SQ) ---
EXAM DESCRIPTION: MRI LUMBAR SPINE WITHOUT COMPLETED DATE/TIME: 01/27/2019 9:23 am REASON FOR STUDY: M54.16 RADICULOPATHY, LUMBAR REGION M54.16 RADICULOPATHY, LUMBAR REGION COMPARISON: 2017 TECHNIQUE: Sagittal and Axial imaging includes T1, T2, STIR and gradient echo sequences. Coronal T2/ HASTE imaging. LIMITATIONS: None. FINDINGS: VISUALIZED UPPER ABDOMEN: Limited evaluation. No acute or suspicious findings suggested. SEGMENTATION: No transitional anatomy. The lowest well-developed disc space is labeled L5-S1. ALIGNMENT: Very slight convex right curve. VERTEBRAE: Height loss at L5. Chronic compression deformity post kyphoplasty. Other vertebrae are m aintained. BONE MARROW: No suspicious findings. Predominantly fatty marrow in the pelvis with suspected patches of persistent red marrow. Changes may be related to previous radiation, correlate with history. DISC SIGNAL: Variable signal and height loss. POSTERIOR ELEMENTS: Irregular facet arthropathy with overgrowth vertically at the lumbosacral juncti on. Unilateral right L5 pars defect, not seen previously. Possibly postoperative. HARDWARE: None in the spine. CORD AND CONUS: Normal in size and signal intensity. Conus at the appropriate level. SOFT TISSUES: No aortic aneurysm seen. No bulky retroperitoneal adenopathy or mass. No paraspinal mas s or fluid. L1-L2: No significant spinal stenosis or exit foraminal stenosis. L2-L3: No significant spinal stenosis or exit foraminal stenosis. L3-L4: Mild broad disc bulge. Mild facet arthropathy. Central canal relatively patent. Bilateral m ild foraminal encroachment. L4-L5: Disc and facet disease. Lateral recess encroachment bilaterally. Mild-moderate bilateral for aminal narrowing. L5-S1: Broad central protrusion. No mass effect on the nerve roots or significant narrowing of the t hecal sac. Generalized disc bulge otherwise. Moderate left and marked right foraminal stenosis. LOWER THORACIC: Incompletely imaged. No stenosis seen. SACRUM: Visualized upper sacrum intact. OTHER: No other significant findings. IMPRESSION: 1. Persistent marked right L5 foraminal stenosis. 2. Post treatment changes are now noted in the L5 vertebral body, status post kyphoplasty. 3. Other findings as above. TECHNICAL DOCUMENTATION: JOB ID: [id number] [email or web address]- All Rights Reserved Reading location - IP/workstation name: [email or web address]
== END ==
LOC: RAD 08:15
PROVIDERS: ATTEND Orthopaedic Surgery
DX: M51.16 Intervertebral disc disorders with radiculopathy, lumbar region (principal); M48.061 Spinal stenosis, lumbar region without neurogenic claudication
CPT/HCPCS: 72148

== ENCOUNTER 2019-09-16 18:27 | Emergency (ER) | payer MEDICARE ==
--- NOTE | 2019-09-16 20:01 | ER Document Report ---
ED Medical Screen (RME) - General Chief Complaint: Leg Pain Stated Complaint: RIGHT LEG PAIN Time Seen by Provider: 09/16/19 19:48 Notes: HPI: 74-year-old male presenting to the emergency department for evaluation of abdominal aneurysm. Patient states that he was being evaluated by orthopedics for back issues and they did an x-ray and noted an aneurysm on the x-ray and called him and sent him to the emergency department for evaluation. Denies chest pain. Denies abdominal pain. PHYSICAL EXAMINATION: No pulsatile mass noted in the abdomen but obese and limited by positioning in triage. Lung sounds clear to auscultation. Discussed with Dr. Jara, Attending. discussed with CN regarding need for bed placement I have greeted and performed a rapid initial assessment of this patient. A comprehensive ED assessment and evaluation of the patient, analysis of test results and completion of medical decision making process will be conducted by an additional ED providers. TRAVEL OUTSIDE OF THE [place] IN LAST 30 DAYS: No - Related Data Allergies/Adverse Reactions: No Known Allergies Allergy (Verified 11/21/18 10:55) Past Medical History - Social History Chew tobacco use (# tins/day): No Frequency of alcohol use: None Drug Abuse: None - Past Medical History Cardiac Medical History: Reports: Hx Coronary Artery Disease, Hx Hypertension Denies: Hx Heart Attack Pulmonary Medical History: Reports: Hx COPD Denies: Hx Asthma, Hx Bronchitis, Hx Pneumonia Neurological Medical History: Denies: Hx Cerebrovascular Accident, Hx Seizures Renal/ Medical History: Denies: Hx Peritoneal Dialysis Malignancy Medical History: Reports Hx Colorectal Cancer GI Medical History: Reports: Hx Gastroesophageal Reflux Disease Musculoskeltal Medical History: Reports Hx Arthritis Past Surgical History: Reports: Hx Abdominal Surgery - hernia repair, colon removed b/c CA, Hx Herniorrhaphy, Hx Orthopedic Surgery - Left collar bone, Back, Other - Partial colectomy for his colon cancer. - Immunizations Hx Diphtheria, Pertussis, Tetanus Vaccination: No Physical Exam - Vital signs Vitals: Temp Pulse Resp BP Pulse Ox 99.7 F 91 18 143/93 H 97 09/16/19 19:46 09/16/19 19:46 09/16/19 19:46 09/16/19 19:46 09/16/19 19:46 Course - Vital Signs Vital signs: Temp Pulse Resp BP Pulse Ox 98.9 F 91 18 143/93 H 97 09/16/19 19:47 09/16/19 19:46 09/16/19 19:46 09/16/19 19:46 09/16/19 19:46
[2019-09-16 20:54] LABS: APPEARANCE,URINE CLEAR; BILIRUBIN,URINE NEGATIVE (NEGATIVE); COLOR,URINE COLORLESS; GLUCOSE, URINE NEGATIVE (NEGATIVE); KETONES,URINE NEGATIVE (NEGATIVE); LEUKOCYTE ESTERASE,URINE NEGATIVE (NEGATIVE); NITRITE,URINE NEGATIVE (NEGATIVE); PROTEIN,URINE NEGATIVE (NEGATIVE); URINE SPECIFIC GRAVITY 1.002; UROBILINOGEN,URINE NEGATIVE mg/dL (<2.0)
[2019-09-16 21:05] LABS: ABSOLUTE BASOPHILS # (AUTO) 0.1 10^3/uL (0.0-0.2); ABSOLUTE EOSINOPHILS # (AUTO) 0.3 10^3/uL (0.0-0.6); ABSOLUTE LYMPHOCYTES (AUTO) 1.4 10^3/uL (0.5-4.7); ABSOLUTE MONOCYTES (AUTO) 0.8 10^3/uL (0.1-1.4); ABSOLUTE NEUT (AUTO) 5.8 10^3/uL (1.7-8.2); BASOPHILS % (AUTO) 0.6 % (0-2); HEMATOCRIT 47.3 % (37.9-51.0); HEMOGLOBIN 15.9 g/dL (13.5-17.0); LYMPHOCYTES % (AUTO) 16.3 % (13-45); MEAN CORPUSCULAR HEMOGLOBIN 30.6 pg (27.0-33.4); MEAN CORPUSCULAR HGB CONC 33.6 g/dL (32.0-36.0); MEAN CORPUSCULAR VOLUME 91 fl (80-97); MONOCYTES % (AUTO) 9.6 % (3-13); PLATELET COUNT 189 10^3/uL (150-450); RED BLOOD COUNT 5.19 10^6/uL (4.35-5.55); RED CELL DISTRIBUTION WIDTH 13.9 % (11.5-14.0); SEGMENTED NEUTROPHILS % (AUTO) 69.5 % (42-78); TOTAL CELLS COUNTED % (AUTO) 100 %; WHITE BLOOD COUNT 8.3 10^3/uL (4.0-10.5)
[2019-09-16 21:13] LABS: INTERNATIONAL RATION (INR) 1.07; PROTHROMBIN TIME 13.9 SEC (11.4-15.4)
[2019-09-16 21:16] LABS: ALBUMIN 4.8 g/dL (3.5-5.0); ALKALINE PHOSPHATASE 56 U/L (38-126); ANION GAP 9 (5-19); ASPARTATE AMINO TRANSFERASE 32 U/L (17-59); BILIRUBIN,TOTAL 0.6 mg/dL (0.2-1.3); BLOOD UREA NITROGEN 18 mg/dL (7-20); CALCIUM 9.8 mg/dL (8.4-10.2); CARBON DIOXIDE 28 mmol/L (22-30); CHLORIDE 100 mmol/L (98-107); GLUCOSE 112 mg/dL (75-110); POTASSIUM 4.5 mmol/L (3.6-5.0); TOTAL PROTEIN 8.3 g/dL (6.3-8.2)
--- NOTE | 2019-09-16 22:01 | RADIOLOGY REPORT (SQ) ---
EXAM DESCRIPTION: CT CHEST ANGIOGRAPHY WITHOUT THEN WITH IV CONTRAST, CT ABDOMEN PELVIS ANGIOGRAPHY WITHOUT THEN WITH IV CONTRAST COMPLETED DATE/TME: 09/16/2019 20:00 (accession [id number]), 09/16/2019 19:57 (accession [id number]) CLINICAL HISTORY: 74 years, Male, aneurysm COMPARISON: Prior CT dated 05/03/2016; chest radiograph from 11/24/2018 TECHNIQUE: Contrast enhanced CT of the chest, abdomen, and pelvis was acquired after the administration of 100 mL of Omnipaque 350 intravenous contrast. MIPS were created. Images stored on PACS. All CT scanners at this facility use dose modulation, iterative reconstruction, and/or weight based dosing when appropriate to reduce radiation dose to as low as reasonably achievable (ALARA). [facility]: Dose Right [facility]: CareDose [facility]: Dose Right [facility]: Teradose 4D [facility]: [employer] LIMITATIONS: None. FINDINGS: Chest: Attenuation opacity is noted about the leftward aspect of the anterior trachea just above the slava, indicating adherent mucus. Central airways are otherwise patent. Moderate upper zone predominant emphysematous changes are noted. A band of opacity is evident within the lingula, indicating an area of atelectasis or scar. A few sub-6 mm nodules are noted about both lungs, unchanged from 05/03/2016, and considered benign. Otherwise, no new/enlarging nodules are identified. Lungs are otherwise clear. Mediastinal windows show no significant hilar or mediastinal lymph node enlargement. Calcifications are evident about the coronary vessels and thoracic aorta. Visualized pulmonary arterial vasculature opacifies with contrast normally. The ascending thoracic aorta is normal in caliber measuring up to 3.6 cm in short axis. The thoracic aorta opacifies with contrast normally. Bone windows through the chest reveal no destructive osseous lesions or fractures. However, there is moderate compression deformity involving a midthoracic vertebral body (T5) unchanged from the previous plain radiograph dated 11/24/2018 and considered chronic. Abdomen/pelvis: Liver, spleen, pancreas, gallbladder, and both adrenal glands appear normal. Both kidneys enhance symmetrically. No hydronephrosis or hydroureter. The urinary bladder is well distended and shows no suspicious finding. Suspect TURP defect. There are postsurgical changes of partial rectal resection with primary anastomosis. Additional postsurgical changes are noted about the small bowel within the right hemiabdomen. Several fat-containing ventral hernias are noted throughout the midabdomen, the largest of which is located within the right hemiabdomen on image 164 series 3. Calcifications are evident about the abdominal aorta and proximal iliac vessels. Likewise, there is moderate calcified/noncalcified atherosclerotic plaque at the origin of the superior mesenteric artery, best visualized on image 117 of series 3. This results in at least moderate stenosis of the SMA at its origin. Calcified atherosclerotic plaque is also noted about the origins of the renal arteries bilaterally, left more pronounced than right. This contributes to at least moderate stenosis of the origin of the right renal artery as well as severe stenosis involving the origin of the left renal artery. In addition, there is focal dilatation of the origin of the renal artery, best visualized on image 122 of series 3 measuring up to 1.1 cm in diameter. No suspicious lymphadenopathy or drainable fluid collections. There is no significant aneurysmal dilatation of the abdominal aorta. Bone windows through the abdomen/pelvis reveal postprocedural changes of L5 kyphoplasty. No destructive osseous lesions. IMPRESSION: Chest: No evidence of significant aneurysmal dilatation of the thoracic aorta. Overall, no acute/suspicious abnormalities are evident within the chest. Abdomen/pelvis: No evidence of significant aneurysmal dilatation of the abdominal aorta. Moderate stenosis involving the origin of the SMA as a result of calcified/noncalcified atherosclerotic plaque. Multiple fat-containing ventral hernias, the largest of which is located about the right hemiabdomen. Focal fusiform dilatation of the origin of the right renal artery at its origin measuring up to 1.1 cm in diameter. Concomitant moderate stenosis of the right renal artery. Additional suspected severe stenosis involving the origin of the left renal artery. TECHNICAL DOCUMENTATION: Quality ID # 436: Final reports with documentation of one or more dose reduction techniques (e.g., Automated exposure control, adjustment of the mA and/or kV according to patient size, use of iterative reconstruction technique) copyright 2011 [employer]- All Rights Reserved
--- NOTE | 2019-09-16 22:04 | EKG REPORT ---
SEVERITY:- ABNORMAL ECG - SINUS RHYTHM PROBABLE INFERIOR INFARCT, OLD PROBABLE LATERAL INFARCT, OLD ANTERIOR INFARCT, AGE INDETERMINATE : Confirmed by: Zahira Corey MD 16-Sep-2019 22:03:00
--- NOTE | 2019-09-16 23:25 | ER Document Report ---
ED General - General Chief Complaint: Leg Pain Stated Complaint: RIGHT LEG PAIN Time Seen by Provider: 09/16/19 19:48 Primary Care Provider: SHIV CARNEY MD [Primary Care Provider] - Follow up as needed Notes: 74-year-old male presents the emergency department after being seen at immediate care. States that he had some new onset left lower back pain for the past week that is been getting progressively worse but does not radiate. States that he "felt like Garcia" all day today. States that means felt terrible in his left lower back. States that when he was at immediate care they did an x-ray of his spine which she was told showed an abdominal aortic aneurysm so he was sent here for further evaluation. Denies any radiation of the pain, denies any new numbness or tingling, denies any urinary frequency or urinary changes. States that he does have chronic right low back pain that radiates to his leg and has some intermittent numbness and tingling but this is unchanged and is currently being worked up by orthopedic surgery as an outpatient. TRAVEL OUTSIDE OF THE [place] IN LAST 30 DAYS: No - Related Data Allergies/Adverse Reactions: No Known Allergies Allergy (Verified 11/21/18 10:55) Past Medical History - General Information source: Patient - Social History Smoking Status: Former Smoker Chew tobacco use (# tins/day): Yes Frequency of alcohol use: None Drug Abuse: None Family History: Reviewed & Not Pertinent - Past Medical History Cardiac Medical History: Reports: Hx Coronary Artery Disease, Hx Hypertension Denies: Hx Heart Attack Pulmonary Medical History: Reports: Hx COPD Denies: Hx Asthma, Hx Bronchitis, Hx Pneumonia Neurological Medical History: Denies: Hx Cerebrovascular Accident, Hx Seizures Renal/ Medical History: Denies: Hx Peritoneal Dialysis Malignancy Medical History: Reports Hx Colorectal Cancer GI Medical History: Reports: Hx Gastroesophageal Reflux Disease Musculoskeletal Medical History: Reports Hx Arthritis Past Surgical History: Reports: Hx Abdominal Surgery - hernia repair, colon removed b/c CA, Hx Herniorrhaphy, Hx Orthopedic Surgery - Left collar bone, Back, Other - Partial colectomy for his colon cancer. - Immunizations Hx Diphtheria, Pertussis, Tetanus Vaccination: No Hx Pneumococcal Vaccination: 12/25/12 Review of Systems - Review of Systems Constitutional: No symptoms reported EENT: No symptoms reported Musculoskeletal: See HPI -: Yes All other systems reviewed and negative Physical Exam - Vital signs Vitals: Temp Pulse Resp BP Pulse Ox 99.7 F 91 18 143/93 H 97 09/16/19 19:46 09/16/19 19:46 09/16/19 19:46 09/16/19 19:46 09/16/19 19:46 Interpretation: Hypertensive - Notes Notes: GENERAL: Alert, interacts well. No acute distress. HEAD: Normocephalic, atraumatic EYES: Pupils equal, round and reactive to light, extraocular movements intact. ENT: Oral mucosa moist, tongue midline. NECK: Full range of motion, supple, trachea midline. LUNGS: Clear to auscultation bilaterally, no wheezes, rales or rhonchi, no respiratory distress. HEART: Regular rate and rhythm, no murmurs, gallops, rubs. ABDOMEN: Soft, nontender, nondistended, bowel sounds present in all 4 quadrants. BACK: Complains of soreness in the lumbar paraspinal muscle with palpation, no midline bony tenderness to palpation, no step-offs or deformities. EXTREMITIES: Moves all 4 extremities spontaneously, no edema, radial and dorsalis pedis pulses 2/4 bilaterally. No cyanosis. NEUROLOGICAL: Alert and oriented x3, normal speech, biceps and patellar DTRs 2+ bilaterally. 5 out of 5 great toe raising strength bilaterally, sensation is intact across the feet and legs, no saddle anesthesia. 5-5 muscle strength in the bilateral lower extremities. PSYCH: Normal mood, normal affect. SKIN: Warm, Dry, normal turgor. Course - Re-evaluation Re-evalutation: 09/16/19 23:24 Abdomen/Pelvis CTA 09/16/19 19:57 IMPRESSION: Chest: No evidence of significant aneurysmal dilatation of the thoracic aorta. Overall, no acute/suspicious abnormalities are evident within the chest. Abdomen/pelvis: No evidence of significant aneurysmal dilatation of the abdominal aorta. Moderate stenosis involving the origin of the SMA as a result of calcified/noncalcified atherosclerotic plaque. Multiple fat-containing ventral hernias, the largest of which is located about the right hemiabdomen. Focal fusiform dilatation of the origin of the right renal artery at its origin measuring up to 1.1 cm in diameter. Concomitant moderate stenosis of the right renal artery. Additional suspected severe stenosis involving the origin of the left renal artery. TECHNICAL DOCUMENTATION: Quality ID # 436: Final reports with documentation of one or more dose reduction techniques (e.g., Automated exposure control, adjustment of the mA and/or kV according to patient size, use of iterative reconstruction technique) copyright 2010 [employer]- All Rights Reserved Chest/Abdomen CTA 09/16/19 20:00 IMPRESSION: Chest: No evidence of significant aneurysmal dilatation of the thoracic aorta. Overall, no acute/suspicious abnormalities are evident within the chest. Abdomen/pelvis: No evidence of significant aneurysmal dilatation of the abdominal aorta. Moderate stenosis involving the origin of the SMA as a result of calcified/noncalcified atherosclerotic plaque. Multiple fat-containing ventral hernias, the largest of which is located about the right hemiabdomen. Focal fusiform dilatation of the origin of the right renal artery at its origin measuring up to 1.1 cm in diameter. Concomitant moderate stenosis of the right renal artery. Additional suspected severe stenosis involving the origin of the left renal artery. TECHNICAL DOCUMENTATION: Quality ID # 436: Final reports with documentation of one or more dose reduction techniques (e.g., Automated exposure control, adjustment of the mA and/or kV according to patient size, use of iterative reconstruction technique) copyright 2010 [employer]- All Rights Reserved 09/16/19 23:25 CBC unremarkable coags normal, CMP unremarkable, urinalysis unremarkable. 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 Patient has no acute signs of radiculopathy on the left. Patient is encouraged to follow-up with primary care physician as an outpatient for further work-up of this left low back pain that does not correspond with urinary tract infection either. No evidence of cauda equina syndrome. Patient will be discharged to home. - Vital Signs Vital signs: Temp Pulse Resp BP Pulse Ox 98.9 F 91 18 143/93 H 97 09/16/19 19:47 09/16/19 19:46 09/16/19 19:46 09/16/19 19:46 09/16/19 19:46 - Laboratory Result Diagrams: 09/16/19 10:42 09/16/19 20:42 Laboratory results interpreted by me: 09/16/19 20:42 Glucose 112 H Total Protein 8.3 H Discharge - Discharge Clinical Impression: Left low back pain Qualifiers: Chronicity: acute Sciatica presence: without sciatica Qualified Code(s): M54.5 - Low back pain Condition: Stable Disposition: HOME, SELF-CARE Additional Instructions: Today in your CAT scan there is no evidence of any thoracic or abdominal aortic aneurysm. 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 This does not appear to be causing a problem today, your kidney function is normal today. We also did not find any urinary tract infection that would explain your low back pain. I would like you to continue to follow-up with your primary care physician and with the specialist who is working up your right-sided back pain as an outpatient. Return for numbness, difficulty peeing or pooping, difficulty walking or pain radiating down your left side of your body. Referrals: SHIV CARNEY MD [Primary Care Provider] - Follow up as needed
[2019-09-16 23:35] VITALS: BP 131/73
== END 2019-09-16 23:35 | disposition home or self-care (01) ==
LOC: ER 18:27
DX: M54.5 Low back pain (principal); M79.604 Pain in right leg; I25.10 Atherosclerotic heart disease of native coronary artery without angina pectoris; I10 Essential (primary) hypertension
CPT/HCPCS: 36415; 71275; 74174; 80053; 81001; 85025; 85610; 86850; 86900; 86901; 93005; 93010; 99284